=== PATIENT | female | born 1960 | race Caucasian/White ===

== ENCOUNTER → 2017-07-06 | Day surgery (SDC) | payer OTHER ==
--- NOTE | 2017-07-11 14:38 | PATH ---
Surgical Pathology Report Patient Name: MAGDALENO URIBE [facility]. Rec. #: [id number] /Age/Gender: 1960 (Age: 57) / F Account: [id number] Location: [facility] U Taken: 07/06/2017 Received: 07/06/2017 Reported: 07/11/2017 Physicians: Margoth Maurer M.D. Specimen(s) Received RIGHT BREAST 12:00 4 CM FN CORE BIOPSY Clinical History Palpable mass Ultrasound findings: Cystic lesion Final Diagnosis BREAST, RIGHT, 12:00, 4 CM FN, CORE BIOPSY: FIBROADIPOSE TISSUE SHOWING GRANULOMATOUS, ACUTE AND CHRONIC INFLAMMATION. (SEE NOTE) Note: The specimen is comprised of fibroadipose tissue showing marked acute and chronic inflammation with scattered non-necrotizing granulomas, raising the possibility of granulomatous mastitis. AFB and GMS stains are negative for acid-fast bacilli and fungal organisms, respectively. Cytokeratin (AE1/3) immunostain (performed at [facility]) is negative. Correlation with clinical and radiologic findings is recommended. Electronically Signed Carlota Booker M.D. Gross Description Received in formalin labeled "right breast biopsy 12:00, 4 cmfn," is a 1.6 x 0.9 x 0.2 cm aggregate of multiple garcia-yellow, irregular to cylindrical portions of fibroadipose tissue. The formalin is filtered and the specimen is entirely submitted in one cassette. Time to formalin fixation: < 1 minute Total formalin fixation time: Approximately 75 hours. 07/09/2017 [facility]07/09/2017
== END | disposition home or self-care (01) ==
LOC: FRADUS-SUR 14:09
PROVIDERS: ATTEND Surgery Surgical Oncology
PROC: 0HBT3ZX Excision of Right Breast, Percutaneous Approach, Diagnostic (ICD-10-PCS; principal; 2017-07-06)
DX: N64.89 Other specified disorders of breast (principal); N63.10 Unspecified lump in the right breast, unspecified quadrant
CPT/HCPCS: 19083; 87899; 88305-TC; 88312-TC; 88342-TC; A4648

== ENCOUNTER → 2021-10-13 | Day surgery (SDC) | payer OTHER | END | disposition home or self-care (01) | LOC: JRADIR 09:57 | PROVIDERS: ATTEND Otolaryngology | PROC: 0G9H3ZX Drainage of Right Thyroid Gland Lobe, Percutaneous Approach, Diagnostic (ICD-10-PCS; principal; 2021-10-13) | DX: C73 Malignant neoplasm of thyroid gland (principal) | CPT/HCPCS: 10005; 76942; 88173; 88305-TC ==

== ENCOUNTER 2022-06-03 11:36 | Emergency (ER) | payer OTHER ==
[2022-06-03 11:40] VITALS: TEMP 98.1; BMI 22.6
[2022-06-03 12:36] LABS: BASO % 0.4 % (0-2.0); EOS % 1.7 % (0-4.5); HEMOGLOBIN 13.4 GM/dL (10.7-15.3); LYMPH % 18.3 % (8-40); MCH 28.9 pg (25.7-33.7); MCHC 33.5 g/dl (32.0-36.0); MEAN CELL VOLUME 86.4 fl (80-96); MEAN PLT VOLUME 8.1 fl (7.5-11.1); MONO % 6.8 % (3.8-10.2); NEUT % 72.8 % (42.8-82.8); PLATELET COUNT 150 10^3/uL (134-434); RBC 4.63 M/mm3 (3.60-5.2); WHITE BLOOD COUNT 3.6 K/mm3 (4.0-10.0)
[2022-06-03 12:42] LABS: INR 1.24 (0.83-1.09); PROTHROMBIN TIME (PATIENT) 14.4 SEC (9.7-13.0)
[2022-06-03 12:44] LABS: ACTIVATED PTT 41.7 SECONDS (25.2-36.5)
[2022-06-03 12:48] LABS: EPI CELLS 0 /uL (0-25.1); HYALINE CASTS 0 /uL (0-3.1); PH,URINE 6.5 (5.0-8.0); URINE APPEARANCE CLEAR; URINE BACTERIA 3 /uL (0-1359); URINE BILIRUBIN NEGATIVE (NEGATIVE); URINE COLOR YELLOW; URINE GLUCOSE (UA) NEGATIVE (NEGATIVE); URINE KETONE NEGATIVE (NEGATIVE); URINE LEUK ESTERASE NEGATIVE (NEGATIVE); URINE NITRITE NEGATIVE (NEGATIVE); URINE PROTEIN NEGATIVE (NEGATIVE); URINE RBC 6 /uL (0-23.9); URINE UROBILINOGEN 0.2 mg/dL (0.2-1.0); URINE WBC 1 /uL (0-25.8)
[2022-06-03 13:03] LABS: BLOOD UREA NITROGEN 15.6 mg/dL (7-18); CALCIUM 9.2 mg/dL (8.5-10.1)
[2022-06-03 13:04] LABS: ALBUMIN 3.7 g/dl (3.4-5.0)
[2022-06-03 13:07] LABS: CREATININE 0.6 mg/dL (0.55-1.3)
[2022-06-03 13:08] LABS: BILIRUBIN,TOTAL 0.6 mg/dL (0.2-1)
[2022-06-03 15:45] VITALS: BP 117/62; PULSE 70; RESP 20
== END 2022-06-03 15:45 | disposition home or self-care (01) ==
LOC: JER 11:36
DX: R30.0 Dysuria (principal)
CPT/HCPCS: 36415; 74177-TC; 80053; 81003; 85025; 85610; 85730; 86850; 86900; 86901; 87086; 99285-25; Q9967

== ENCOUNTER 2022-12-17 10:17 | Observation (INO) | payer OTHER ==
[2022-12-17] MEDS ORDERED: ACETAMINOPHEN 500 MG TABLET (FP) PO ONE (11:14)
[2022-12-17] MEDS ORDERED: ACETAMINOPHEN 500 MG TABLET (FP) ONE (12:17)
[2022-12-17 12:49] LABS: BASO % 0.5 % (0-2.0); EOS % 1.5 % (0-4.5); HEMATOCRIT 37.4 % (32.4-45.2); LYMPH % 11.1 % (8-40); MCH 26.2 pg (25.7-33.7); MEAN CELL VOLUME 81.7 fl (80-96); MEAN PLT VOLUME 7.6 fl (7.5-11.1); NEUT % 79.9 % (42.8-82.8); PLATELET COUNT 230 10^3/uL (134-434); RBC 4.57 M/mm3 (3.60-5.2); RDW 14.3 % (11.6-15.6); WHITE BLOOD COUNT 4.9 K/mm3 (4.0-10.0)
[2022-12-17 13:48] LABS: POTASSIUM 4.4 mmol/L (3.5-5.1)
[2022-12-17 13:50] LABS: CALCIUM 9.4 mg/dL (8.5-10.1)
[2022-12-17 13:51] LABS: ALBUMIN 3.6 g/dl (3.4-5.0); BLOOD UREA NITROGEN 13.1 mg/dL (7-18)
[2022-12-17 13:54] LABS: CREATININE 0.7 mg/dL (0.55-1.3)
[2022-12-17 13:56] LABS: BILIRUBIN,TOTAL 0.4 mg/dL (0.2-1); TOT PROT 7.4 g/dl (6.4-8.2)
[2022-12-17] MEDS ORDERED: IBUPROFEN 400 MG TABLET (FP) PO PRN (20:51)
[2022-12-17] MEDS ORDERED: IBUPROFEN 400 MG TABLET (FP) PO ONE (22:24)
[2022-12-17] MEDS ORDERED: APIXABAN 2.5 MG TABLET ONE (22:24)
[2022-12-17] MEDS: APIXABAN 2.5 MG TABLET PO SCH (22:33)
[2022-12-18] MEDS: LEVOTHYROXINE NA 100 MCG TABLET (FP) PO SCH (07:45)
[2022-12-18] MEDS ORDERED: LEVOTHYROXINE NA 100 MCG TABLET (FP) ONE (07:48)
[2022-12-18 08:19] LABS: BASO % 0.6 % (0-2.0); EOS % 2.4 % (0-4.5); HEMATOCRIT 31.7 % (32.4-45.2); HEMOGLOBIN 10.7 GM/dL (10.7-15.3); LYMPH % 16.4 % (8-40); MCH 26.8 pg (25.7-33.7); MCHC 33.7 g/dl (32.0-36.0); MEAN CELL VOLUME 79.5 fl (80-96); MEAN PLT VOLUME 7.5 fl (7.5-11.1); MONO % 11.2 % (3.8-10.2); NEUT % 69.4 % (42.8-82.8); PLATELET COUNT 170 10^3/uL (134-434); RBC 3.99 M/mm3 (3.60-5.2); RDW 14.4 % (11.6-15.6); WHITE BLOOD COUNT 3.2 K/mm3 (4.0-10.0)
[2022-12-18 08:23] LABS: POTASSIUM 4.1 mmol/L (3.5-5.1)
[2022-12-18 08:26] LABS: BLOOD UREA NITROGEN 11.1 mg/dL (7-18)
[2022-12-18 08:27] LABS: CALCIUM 8.9 mg/dL (8.5-10.1); MAGNESIUM 2.4 mg/dL (1.8-2.4)
[2022-12-18 08:30] LABS: CREATININE 0.6 mg/dL (0.55-1.3); PHOSPHOROUS 4.3 mg/dL (2.5-4.9)
[2022-12-18 08:31] LABS: BILIRUBIN,TOTAL 0.4 mg/dL (0.2-1)
[2022-12-18] MEDS: FUROSEMIDE 40 MG TABLET (FP) PO SCH (10:09)
[2022-12-18] MEDS ORDERED: APIXABAN 2.5 MG TABLET ONE (10:30)
[2022-12-18] MEDS: APIXABAN 2.5 MG TABLET PO SCH ×2 (10:45→22:09)
[2022-12-18 15:51] VITALS: BMI 22.3
[2022-12-18] MEDS ORDERED: ROSUVASTATIN CA 10 MG TABLET PO SCH (22:00)
[2022-12-18] MEDS ORDERED: NADOLOL 20 MG TABLET (FP) PO SCH (22:00)
[2022-12-19] MEDS ORDERED: ACETAMINOPHEN 325 MG TABLET (FP) PO PRN (00:20)
[2022-12-19] MEDS: LEVOTHYROXINE NA 100 MCG TABLET (FP) PO SCH (06:37)
[2022-12-19] MEDS: FUROSEMIDE 40 MG TABLET (FP) PO SCH (11:13)
[2022-12-19] MEDS: APIXABAN 2.5 MG TABLET PO SCH (11:13)
[2022-12-19 18:45] VITALS: RESP 18
[2022-12-19 18:46] VITALS: BP 107/55; PULSE 62; TEMP 97.8
== END 2022-12-19 19:32 | disposition home or self-care (01) ==
LOC: JERFT 10:17 → UNDOADMOB 16:50 → JERBED 16:50 → INTOOBSV 16:50 → J6S 12-18 14:06 → JERBED 12-18 14:06 → J6S 12-19 10:01
PROVIDERS: ADMIT Internal Medicine; ATTEND Internal Medicine
DX: U07.1 COVID-19 (principal); J90 Pleural effusion, not elsewhere classified; M79.10 Myalgia, unspecified site; I81 Portal vein thrombosis; Z85.850 Personal history of malignant neoplasm of thyroid; Z79.01 Long term (current) use of anticoagulants
CPT/HCPCS: 0241U-QW; 36415; 71046-TC-FY; 71275-TC; 80053; 83615; 83735; 84100; 84484; 85025; 85379; 93005; 93010; 94761; 99285-25; G0378